=== PATIENT | female | born 1970 | race Caucasian/White ===

== ENCOUNTER 2020-12-28 04:33 | Day surgery (SDC) | payer BC ==
[2020-12-25 13:40] VITALS: BMI 18.6
[2020-12-28] MEDS ORDERED: LIDOCAINE HCL/PF 2% SDV 5ML VIAL ONE ×2 (12:45→13:22)
[2020-12-28] MEDS ORDERED: ONDANSETRON 4 MG/2 ML VIAL ONE ×2 (12:45→13:22)
[2020-12-28] MEDS ORDERED: PROPOFOL 20 ML ONE ×2 (12:45)
[2020-12-28] MEDS ORDERED: DEXAMETHASONE SOD PHOSPHATE 4 MG/1 ML VIAL ONE ×2 (12:45→13:22)
[2020-12-28] MEDS ORDERED: MIDAZOLAM HCL 2 MG/2 ML SINGLE DOSE VIAL ONE (12:46)
[2020-12-28] MEDS ORDERED: KETOROLAC TROMETHAMINE 30 MG/1 ML VIAL ONE (13:22)
[2020-12-28] MEDS ORDERED: ceFAZolin SODIUM 1 GM VIAL IVPB ONE (13:22)
[2020-12-28] MEDS ORDERED: ceFAZolin SODIUM 1 GM VIAL ONE (13:22)
[2020-12-28] MEDS ORDERED: oxyCODONE HCL 5 MG TABLET PO PRN (14:39)
[2020-12-28] MEDS ORDERED: ONDANSETRON 4 MG/2 ML VIAL IVPUSH PRN (14:39)
[2020-12-28] MEDS ORDERED: LACTATED RINGERS SOLUTION 1,000 ML IV SCH (14:45)
[2020-12-28 15:45] VITALS: TEMP 97.5
[2020-12-28 15:48] VITALS: BP 114/58; PULSE 51
== END 2020-12-28 16:40 | disposition home or self-care (01) ==
LOC: JASU-SURG 04:33
PROVIDERS: ATTEND Obstetrics & Gynecology
PROC: 0UDB7ZZ Extraction of Endometrium, Via Natural or Artificial Opening (ICD-10-PCS; principal; 2020-12-28 14:00)
PROC: 0UJD8ZZ Inspection of Uterus and Cervix, Via Natural or Artificial Opening Endoscopic (ICD-10-PCS; 2020-12-28 14:00)
DX: N92.1 Excessive and frequent menstruation with irregular cycle (principal); N92.4 Excessive bleeding in the premenopausal period
CPT/HCPCS: 94760